=== PATIENT | male | born 1975 | race Caucasian/White ===

== ENCOUNTER 2017-07-26 22:29 | Emergency (ER) | payer MEDICAID, SELFPAY ==
[2017-07-26 22:30] VITALS: BP 177/113; PULSE 87; RESP 18; TEMP 36.7; O2SAT 96; BMI 29.0
--- NOTE | 2017-07-26 23:01 | ED.VISSUMM ---
- ER Visit Summary Date of Service: 07/26/17 Chief Complaint: [] Left-sided jaw pain History of Present Illness: The patient is a 42 M [] patient that he had allergic reaction to eating strawberry shortcake. He developed some left lower jaw pain and thought it was swollen just an hour ago. He has an aching sensation in his left lower jaw. No dental pain. He iced and use ibuprofen. Very small to moderate Physical Examination: [] Vital signs reviewed General: Well-nourished well-developed Head: Normocephalic atraumatic Eyes: Pupils equal round and reactive to light extraocular movements intact ENT: TMs clear no hemotympanum no trauma. Oral exam normal. Dental exam normal. Cheek exam normal. Neck: Nontender full range of motion. Patient has a swollen tender left submandibular lymph node. TMJs normal. Parotid is normal. Cardiovascular: Regular rate rhythm no murmurs normal S1-S2 Respiratory: No distress clear to auscultation bilaterally chest nontender Abdomen: Soft nontender nondistended normal bowel sounds no masses Back: Nontender no CVA tenderness Extremities: Nontender active range of motion ?4 extremities no trauma Skin: Normal color no trauma Neuro alert oriented cranial nerves II through XII intact normal strength sensation reflexes Test Results: [] Emergency Department Course and Treatment: [] At this time the patient is has a swollen tender lymph node. There is no tonsillitis. There is no allergic reaction. There is no significant swelling anywhere else. Patient will be given amoxicillin for lymphadenitis. Will continue ibuprofen and ice. Will follow up. Treatment Plan: [] Disposition: [] Impression: [] Left cervical lymphadenitis This note was generated with [employer] dictation software. It may contain incorrect words, spelling, and punctuation that were not noted in review of the chart prior to signing ED Disposition - Plan for ED Patient: Chief Complaint: Allergic Reaction Referrals: Chaim Jones MD [Primary Care Provider] -
--- NOTE | 2017-07-26 23:03 | ED.DEP ---
ED Disposition - Plan for ED Patient: Disposition: Home or Assisted Living Chief Complaint: Allergic Reaction Instructions: ED Cervical Adenitis Abx Tx Prescriptions: Amoxicillin 500 mg PO TID #30 tab Referrals: Chaim Jones MD [Primary Care Provider] -
[2017-07-26] MEDS: AMOXICILLIN 500 MG CAPSULE PO (23:14)
[2017-07-26 23:19] VITALS: RESP 16
== END 2017-07-26 23:20 | disposition home or self-care (01) ==
LOC: ED 23:07
PROVIDERS: Emergency Provider Emergency Medicine; Family Provider Family Medicine; PCP Family Medicine
DX: I88.9 Nonspecific lymphadenitis, unspecified (principal); M79.7 Fibromyalgia; Z72.0 Tobacco use
CPT/HCPCS: 99283

== ENCOUNTER 2017-07-31 09:55 | Emergency (ER) | payer MEDICAID, SELFPAY ==
[2017-07-31 09:56] VITALS: BP 164/103; PULSE 130; RESP 18; TEMP 36.7; O2SAT 97; BMI 28.1
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
--- NOTE | 2017-07-31 10:30 | ED.DEP ---
ED Disposition - Plan for ED Patient: Chief Complaint: Shortness of Breath Instructions: ED Inhalation Chemical Referrals: Chaim Jones MD [Primary Care Provider] - As Needed
[2017-07-31 10:42] VITALS: BP 166/111; PULSE 115; RESP 24; O2SAT 95
== END 2017-07-31 10:42 | disposition home or self-care (01) ==
LOC: ED 10:30
PROVIDERS: Emergency Provider Emergency Medicine; Family Provider Family Medicine; PCP Family Medicine
DX: T59.811A Toxic effect of smoke, accidental (unintentional), initial encounter (principal); Y92.9 Unspecified place or not applicable; M79.7 Fibromyalgia; J45.909 Unspecified asthma, uncomplicated; R05 Cough
CPT/HCPCS: 99284

== ENCOUNTER 2018-03-28 15:22 | Emergency (ER) | payer MEDICAID, SELFPAY ==
[2018-03-28 15:22] VITALS: BP 170/106; PULSE 107; RESP 16; TEMP 36.9; O2SAT 99; BMI 28.1
--- NOTE | 2018-03-28 16:11 | EKG12_ITS ---
Test Reason : DIZZY Blood Pressure : / mmHG Vent. Rate : 087 BPM Atrial Rate : 087 BPM P-R Int : 172 ms QRS Dur : 092 ms QT Int : 350 ms P-R-T Axes : 043 002 020 degrees QTc Int : 421 ms Normal sinus rhythm Normal ECG Confirmed by NITIN CAMPOVERDE, TONY ([id number]), publication editor KARLY BAR ([id number]) on 04/02/2018 10:56:18 AM Referred By: MAYI Confirmed By:TONY TAVERAS MD
--- NOTE | 2018-03-28 16:19 | CT_ITS ---
STUDY: CTA OF THE BRAIN REASON FOR EXAM: Male, 43 years old. Headache, blurred vision. RADIATION DOSAGE (If Supplied By Facility): CTDIvol = ( 24.73 ) mGy, DLP = ( 1189.67 ) mGycm TECHNIQUE: CT angiography was performed with a multi-detector CT scanner. Data acquisition was obtained from the skull base through the vertex following intravenous administration of Isovue 370 100 IV. MIP images were reconstructed from the axial data set. Post-processing of the angiographic images was performed, with multiplanar reformation and 3D reconstruction. Individualized dose optimization techniques were used for this CT. COMPARISON: CT brain 09/03/2016. 01/19/2014. FINDINGS: CT brain: There is no intracranial hemorrhage, hydrocephalus, or acute territorial infarct. There is a 3.8 x 2.1 cm hypodensity in the left anterior middle cranial fossa consistent with arachnoid cyst. There is no significant change compared to 2013. CTA brain: Normal bilateral petrous carotid arteries. Normal right cavernous carotid artery with a normal supraclinoid bifurcation. Normal left cavernous carotid artery with a normal supraclinoid bifurcation. Normal right A1 segments of the anterior cerebral artery. Normal left A1 segments of the anterior cerebral artery. Normal intact anterior communicating artery (ACOM). Normal bilateral A2 segments of the anterior cerebral arteries. Normal right M1 and M2 segments of the middle cerebral arteries, with a normal M1 bifurcation. Normal left M1 and M2 segments of the middle cerebral arteries, with a normal M1 bifurcation. Normal right posterior communicating artery (PCOM). Normal left posterior communicating artery (PCOM). There is a left dominant vertebral artery. The right vertebral artery terminates as the posterior inferior cerebellar artery. Normal basilar artery with a normal basilar bifurcation. The visualized bilateral superior cerebellar (SCA) arteries are normal. Normal bilateral P1, P2 and visualized P3 segments of the posterior cerebral arteries. There is no demonstrated aneurysm of the tangirnaq of [place]. CT/CTA Head W/WO Contrast IMPRESSION: Normal tangirnaq of Hall without a demonstrated aneurysm or significant stenosis. Stable left middle cranial fossa arachnoid cyst. Electronically Signed: Nicole Burnette MD at 18:18 EST Tel , Service support ,
[2018-03-28 16:44] VITALS: BP 161/111; PULSE 97; RESP 22; O2SAT 96
--- NOTE | 2018-03-28 16:48 | ED.DCSUM_ITS ---
- ER Visit Summary Date of Service: 03/28/18 Chief Complaint: [] Headache history of headaches and fibromyalgia History of Present Illness: The patient is a 43 M [] reports from 2:00 began to experience a dull diffuse headache, it is not the worst headache of his life, he indicates headache persisted pounding throbbing he had no other complaints, no change in vision speech no paresthesia his symptoms did not improve at home and he came in for evaluation he indicates he has a prior history for headaches and other neurologic conditions he is been seen in the past by neurology had brain scans he has never been told he has brain aneurysm brain tumor at one point time it was concerned he may have MS because he had other musculoskeletal skeletal symptoms of fatigue but was later determined he did not have MS and more likely fibromyalgia,, his review of systems are negative for fever cough runny nose n yun stiffness photophobia numbness weakness or paresthesia he has no other past history other than fibromyalgia is noted his blood pressure is 175/110 he is not known to have hypertension and nothing today made him ill Physical Examination: [] Afebrile blood pressure as above General, no distress resting comfortably HEENT is generally unremarkable The neck is supple no adenopathy Cardiovascular, regular rate and rhythm Lungs, clear bilateral Abdomen, soft nontender Extremities, no clubbing cyanosis or edema Neurologic, awake alert answering questions appropriately moving all 4 extremities, no neurologic findings NIH 0 Test Results: [] Emergency Department Course and Treatment: [] Given all the above screening labs CTA medications The patient's labs are all unremarkable CT of the head shows nothing acute see that report on reevaluation his blood pressures improved to 130/92 is feeling much better I discussed all of the above with the patient and he wants to go home and wants no further imaging or studies or procedures to the emergency department I have explained to him that the exact etiology of the headache are unclear he has had them before he is referred to his outpatient providers and also given referral to Dr. Eckert of neurology and will return for change in symptoms, further given that he has no history of hypertension I explained to him that one visit to the ED does not establish that diagnosis and he will have that checked with his outpatient providers Treatment Plan: [] Disposition: [] Home stable Impression: [] Headache and hypertension resolved This note was generated with [employer] software. It may contain incorrect words, spelling, and punctuation that were not noted in review of the chart prior to signing ED Disposition - Plan for ED Patient: Referrals: Chaim Jones MD [Primary Care Provider] -
[2018-03-28] MEDS: Clonidine HCl 0.1 MG, Clonidine HCl 0.2 MG 0.3 MG PO (16:49)
[2018-03-28] MEDS: proCHLORPERazine 10 MG/2 ML Vial IV (16:50)
[2018-03-28] MEDS: DiphenhydrAMINE 50 MG/ML Syringe 25 MG IV (16:50)
[2018-03-28 16:57] LABS: Absolute Lymphocyte Count 1.74 X10^3/ul (0.83-4.51); Absolute Neutrophil Count 4.9 X10^3/uL (2.0-7.7); Basophil# 0.01 X10^3/uL; Basophil% 0.1 % (0-1); Eosinophil# 0.08 X10^3/uL; Eosinophils% 1.1 % (0-5); Hematocrit 43.9 % (40-54); Hemoglobin 14.3 g/dl (13.0-16.5); Lymphocyte # 1.74 X10^3/ul (4.0); Lymphocyte % 24.6 % (19-41); Mean Corp Hgb Conc 32.6 g/gl (32-36); Mean Corpuscular Hgb 29.9 pg (27.0-32.0); Mean Corpuscular Volume 91.8 fL (80-94); Mean Platelet Vol. 9.1 fl (6.2-12.0); Monocyte# 0.38 X10^3/uL; Monocyte% 5.4 % (0-10); Neutrophil # 4.85 X10^3/uL (2.7-7.7); Neutrophil % 68.7 % (47-70); Platelet Count 261 K/mm3 (150-450); RBC Distribution Width CV 13.3 % (11.6-14.6); RBC Distribution Width SD 44.4 fl (35.1-43.9); Red Blood Count 4.78 M/mm3 (4.6-6.2); White Blood Count 7.1 K/mm3 (4.4-11.0)
[2018-03-28 16:58] LABS: POSITIVE COUNT NO; POSITIVE DIFFERENTIAL NO; POSITIVE MORPHOLOGY NO
[2018-03-28 17:11] LABS: Anion Gap 9 (5-15); BUN 19 mg/dL (7-18); BUN/Creat Ratio 19.1 RATIO (10-20); Calcium,Total 9.2 mg/dL (8.5-10.1); Chloride 107 mmol/L (98-107); EST Glomerular Filtration Rate 87 mL/min (>60); Est Glom Filt Rate - Afr Amer 105 mL/min (>60); Estimated Creatinine Clearance 89.05 ml/min; Glucose 115 mg/dL (74-106); Sodium Level 142 mmol/L (136-145)
[2018-03-28 18:07] VITALS: BP 132/92; PULSE 84; RESP 19; O2SAT 95
--- NOTE | 2018-03-28 19:05 | ED.DEP ---
ED Disposition - Plan for ED Patient: Referrals: Chaim Jones MD [Primary Care Provider] - Anthony Eckert MD [STAFF PHYSICIAN] -
--- NOTE | 2018-03-28 19:06 | ED.DEP ---
ED Disposition - Plan for ED Patient: Instructions: ED Cephalgia Unspecified Referrals: Chaim Jones MD [Primary Care Provider] - Anthony Eckert MD [STAFF PHYSICIAN] -
[2018-03-28 19:34] VITALS: BP 115/79; PULSE 75; RESP 18; O2SAT 95
== END 2018-03-28 19:36 | disposition home or self-care (01) ==
PROVIDERS: Emergency Provider Emergency Medicine; Family Provider Family Medicine; PCP Family Medicine
DX: R51 Headache (principal); I10 Essential (primary) hypertension; M79.7 Fibromyalgia
CPT/HCPCS: 70496; 80048; 84484; 85025; 93005; 96361; 96374; 96375; 99284; J7040; Q9967

== ENCOUNTER 2023-05-08 10:30 | Outpatient (RCR) | payer MEDICAID, SELFPAY ==
--- NOTE | 2023-04-05 06:58 | HP.OTEVAL ---
Patient's Visit Information Visit Information Visit Information: PHILLY SHIELDS is a 48 year old M, referred to Occupational Therapy by LORRI Snyder, with a diagnosis of right elbow pain. Date of Evaluation: 04/04/23 Occupational Therapist: URBAN Sawant/Smita, CHT Subjective Subjective: This 48 year old male was seen for OT eval with dx of right elbow pain- pt states in Fall of 2022 he noticed discomfort and in 2023 he noticed a big change with pain to where it was radiating down his arm into the wrist. pt arrives with counterforce ( lateral epicondylitis brace) pt states this limits him sleeping throughout the night. pt states he works for [employer]- pt states he has been employed since 2016. 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 pt is right handed pt states he did have right elbow sx in 2008 but does not know what was repaired. pt states he has had a elbow brace and started wearing it a few weeks ago. pt states he can not due ice due to a dx of Fibro pt states he does use heat. 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 pt will demo a increase in right forearm sup/pron by 15* with no reported end range pain by d.c to return pt to his PLOF. Goal:: pt will report pain no greater than 2/10 with use of right UE with ADLs by d/c Goal:: Pt will demo understanding of work/lifting and carry ergonomics to decrease stress on tendons to increase pts independent with ADLs, IADLS and work tasks by d/c. Goal:: Pt will demo understanding of using supportive bracing 80% of workday/ADLS to decrease stress on tendon origin to allow healing and decrease pain by end of 2nd session. Rehabilitation General Assessment: pt demo with right elbow pain that limits him from performing his ADLs and work tasks at IND. level. Pt demo need for skilled OT services 2-3x week to decrease pts pain and ed. pt on protective mary. to avoid strain on tendons with daily and work tasks to return pt to a IND. level. Today therapist ed. pt on protective mary. for right elbow pain- use of counter force brace with wrist brace. Pt demo understanding and agrees to POC. Rehabilitation Potential: Good Anticipated Interventions Anticipated Interventions: A/AAROM/PROM, Strengthening, Triggerpoint Release, Modalities, Orthoses, Joint Protection/Energy Conservation, Ergonomic Education, Education re Diagnosis and Home Program Visit Plan Frequency: 2-3x /Week Duration: 2 Months TEXT: Thank you for the opportunity to evaluate your patient. For Medicare and Medicare HMO plans, please review the plan of care and approve it. It will need to be FAXED BACK to us at [phone] for Medicare purposes. Please let me know if there are questions or concerns regarding this plan of care. Physician Signature: Date:
--- NOTE | 2023-05-08 11:20 | HP.OTDCSUM ---
Discharge Summary D/C Summary: It has been my pleasure to treat PHILLY SHIELDS under orders from LORRI Snyder, for the diagnosis of right elbow pain for a total of 10 visit(s). Please see the following information for a summary of their discharge status. Overall Improvement % Improvement: 50 Objective Objective/Function: oil treater strength R elbow at 90 35 pounds oil treater strength L elbow at 90 90 pounds oil treater strength elbow extended R 15 oil treater strength elbow extended L 75 R wrist 65/92 R supination 65 pronation 55 Goals Patient Goals: Regain Strength, Decrease Pain and Use Hand/Wrist/Arm Normally Again Goal:: pt will demo a increase in right oil treater strength by 40# or greater to return to his PLOF with ADLs and IADLs by d.c goal not met oil treater strength remained the same Goal:: pt will demo a increase in right elbow ROM by 5* with no reported end range pain by d.c to return pt to his PLOF. goal met pt will demo a increase in right forearm sup/pron by 15* with no reported end range pain by d.c to return pt to his PLOF. improvement in supination however not pronation Goal:: pt will report pain no greater than 2/10 with use of right UE with ADLs by d/c goal met 0/10 Goal:: Pt will demo understanding of work/lifting and carry ergonomics to decrease stress on tendons to increase pts independent with ADLs, IADLS and work tasks by d/c. goal met Goal:: Pt will demo understanding of using supportive bracing 80% of workday/ADLS to decrease stress on tendon origin to allow healing and decrease pain by end of 2nd session. goal met Plan Plan: discharge this date D/C Information Discharge Comments: 10th visit discharge from OT pt with decreased pain now at a 0/10. pt with increased ROM at elbow and wrist. fluctuating oil treater strength however isometric exercises provided as well as phase 3 and 4 of HEP to address strengthening as pain allows. pt quick dash score improved by 19 points. d/c sentence: If there are questions or concerns regarding this patient's occupational therapy, please fell free to call me at [phone]. Thank you for the referral of this patient. Sincerely, Esther Low
== END 2023-05-08 19:00 | disposition home or self-care (01) ==
LOC: OT 10:30
PROVIDERS: PCP Family Medicine; Referring Provider Physician Assistant; Visit Provider Physician Assistant
DX: M77.11 Lateral epicondylitis, right elbow (principal); M25.521 Pain in right elbow
CPT/HCPCS: 97035; 97140; 97166; 97530

== ENCOUNTER 2024-03-18 18:47 | Emergency (ER) | payer MEDICAID, SELFPAY ==
[2024-03-18] VITALS (10 sets, daily range): BP systolic 134–163; BP diastolic 88–102; PULSE 96–135; RESP 16–30; TEMP 36.9–37.7; O2SAT 95–100; BMI 29.1
--- NOTE | 2024-03-18 18:53 | CT_ITS ---
PROCEDURE: CT BRAIN WITHOUT CONTRAST REASON FOR EXAM: UNRESPONSIVE TO VOICE. OPEN EYES TO PAINFUL STIMULI. TECHNIQUE: Contiguous axial scans of 3.75 mm slice thicknesses with sagittal and coronal reconstruction images. One or more dose reduction techniques were utilized (e.g., automated exposure control, adjustment of mA and/or kv according to patient size, use of iterative reconstruction technique). COMPARISON: No acute intracranial abnormalities are demonstrated. No relevant prior. FINDINGS: No intraparenchymal hemorrhage. Encephalomalacia at the anterior aspect of the temporal lobe. No mass effect or midline shift. Germain-white matter differentiation is normal. Ventricles and cisterns are appropriate size for patient's age. No extra-axial fluid collections. Dense calcification of the anterior falx cerebri. Cerebellum and posterior fossa unremarkable. A mucoperiosteal retention cyst in the left maxillary sinus measuring 2.5 x 1.7 cm. Mastoid air cells are normal. Calvarium unremarkable. Soft tissues unremarkable. CT/Brain/Head without Contrast IMPRESSION: 1. No acute intracranial abnormalities are demonstrated. 2. Encephalomalacia at the anterior aspect of the left temporal lobe may be re lated to atrophy 3. Mucoperiosteal retention cyst, left maxillary sinus. Reading Location: [facility]
--- NOTE | 2024-03-18 18:53 | EKG12_ITS ---
Test Reason : DYSRHYTHMIA Blood Pressure : */* mmHG Vent. Rate : 113 BPM Atrial Rate : 113 BPM P-R Int : 166 ms QRS Dur : 86 ms QT Int : 316 ms P-R-T Axes : 39 -5 21 degrees QTcB Int : 433 ms Sinus tachycardia Minimal voltage criteria for LVH, may be normal variant ( R in aVL ) Borderline ECG Confirmed by NITIN CAMPOVERDE, TONY ([id number]), sports editor [employer]Р [employer]END[employer] ([id number]) on 03/20/2024 7:09:46 AM Referred By: Confirmed By: TONY TAVERAS MD
[2024-03-18 19:09] LABS: Allen Test Positive; Base Excess 3 mmol/L (-2 to +2); Bicarbonate 26.8 mmol/L (22-26); Blood Gas Specimen Type ART; Mode Not entered; O2 Delivery Device Room Air; PO2 60 mmHG (75-100); SITE L Radial; SO2 92 % (95-99); Total Carbon Dioxide 28 mmol/L; pCO2 37.9 mmHg (35-45); pH 7.46 (7.35-7.45)
[2024-03-18 19:13] LABS: Absolute Lymphocyte Count 2.21 X10^3/uL (0.83-4.51); Absolute Neutrophil Count 5.6 X10^3/uL (2.0-7.7); Basophil# 0.02 X10^3/uL; Basophil% 0.2 % (0-1); Eosinophil# 0.24 X10^3/uL; Eosinophils% 2.6 % (0-5); Hematocrit 39.7 % (40-54); Hemoglobin 13.7 g/dL (13.0-16.5); Lymphocyte # 2.21 X10^3/ul (0.83-4.51); Lymphocyte % 24.1 % (19-41); Mean Corp Hgb Conc 34.5 g/dL (32-36); Mean Corpuscular Hgb 30.6 pg (27.0-32.0); Mean Corpuscular Volume 88.8 fL (80-94); Mean Platelet Vol. 8.8 fl (6.2-12.0); Monocyte# 1.05 X10^3/uL; Monocyte% 11.5 % (0-10); NRBC Flagged by Analyzer 0 % (0-5); Neutrophil # 5.61 X10^3/uL (2.7-7.7); Neutrophil % 61.3 % (47-70); Platelet Count 247 K/mm3 (150-450); RBC Distribution Width SD 42.2 fl (35.1-43.9); Red Blood Count 4.47 M/mm3 (4.6-6.2); White Blood Count 9.2 K/mm3 (4.4-11.0)
[2024-03-18 19:13] LABS: Bacteria 0 SEEN /hpf (None Seen); Mucous, Urine 0 SEEN /hpf (<or=2+); Red Blood Cells-Urine 0 SEEN /hpf (0-5); Squamous Epithelial Cells - UA 0 SEEN /hpf (0-5); White Blood Cells 0 SEEN /hpf (0-5)
--- NOTE | 2024-03-18 19:15 | RAD_ITS ---
PROCEDURE: CHEST 1 VIEW (PORTABLE) REASON FOR EXAM: Tachypnea. Fever TECHNIQUE: AP upright portable chest. COMPARISON: No relevant prior FINDINGS: Lungs are clear of pneumonia and congestion. No pleural effusions, thickening, or pneumothorax. Heart and mediastinum are normal. Great vessels unremarkable. No hilar masses. Bones and soft tissues are unremarkable. Cardiac monitoring leads overlie the chest wall. RAD/Chest 1 View (Portable) IMPRESSION: No active cardiopulmonary disease. Reading Location: [facility]
[2024-03-18 19:18] LABS: Color, Urine Yellow (Yellow); Glucose, Dipstick Normal (Normal); Ketone-Dipstick Negative (Negative); Leukocyte Esterase-Dipstick Negative /ul (Negative); Nitrite-Dipstick Negative (Negative); Occult Blood-Urine 10 /ul (Negative); Protein-Dipstick 15 mg/dl (Negative); Urine Bilirubin Dipstick Negative (Negative); Urine Clarity Clear (Clear); Urine Urobilinogen Normal (Normal)
[2024-03-18 19:32] LABS: ALB/GLOB Ratio 1.1 RATIO (0.9-2.4); AST(SGOT) 18 U/L (15-37); Alanine Aminotransfer ALT/SGPT 33 U/L (16-61); Albumin, Serum 4.1 g/dL (3.2-5.0); Alkaline Phosphatase 59 U/L (45-117); Anion Gap 9 (5-15); BUN 18 mg/dL (7-18); CPK Total, Creatine Kinase 174 U/L (39-308); Calcium,Total 9.4 mg/dL (8.5-10.1); Chloride 103 mmol/L (98-107); EST Glomerular Filtration Rate 84 mL/min (>60); Est Glom Filt Rate - Afr Amer 102 mL/min (>60); Estimated Creatinine Clearance 95.85 ml/min; Globulin 3.6 g/dL (2.2-4.2); Glucose 147 mg/dL (74-106); Potassium 3.5 mmol/L (3.5-5.1); Protein, Total 7.7 g/dL (6.4-8.2); Sodium Level 137 mmol/L (136-145)
[2024-03-18 19:33] LABS: Partial Thromboplast Time 25.9 Seconds (24.1-36.2); Prothrombin Time (Protime)PT. 12.9 SECONDS (11.7-14.9)
[2024-03-18 19:41] LABS: Lactic Acid 1.6 mmol/L (0.4-1.9)
[2024-03-18] MEDS: Acetaminophen 325 MG Tablet 650 MG PO (20:51)
--- NOTE | 2024-03-18 22:58 | EDS_ITS ---
HPI History of Present Illness Chief Complaint: Unresponsive Detail of Chief Complaint: Patient arrived unresponsive with GCS of 10 Informant: EMS Onset/Context/Timing Onset: Today Context: Sudden Onset Timing: Continuous Quality: Taking [id number] flu cold medication and Mucinex Location: Presents from home apparently Current Severity: Moderate Maximum Severity: Moderate Worsened by: Medication patient took contains Benadryl. Relieved by: Nothing Associated Symptoms Associated Symptoms: Unable to determine Narrative Narrative: Patient is a 49-year-old male he has history of being overweight, fibromyalgia and chronic fatigue. He arrived by EMS because of altered mental status. Unable to obtain any history. Review of prior records indicates patient was seen April 03 for elbow pain at the orthopedic office by Esperanza BLACKMON. July 2018 seen for acute sinusitis at urgent care by Peter Valderrama. He was seen again at urgent care for sinusitis May 2018. He was seen March 2018 for headache in the ER. Prior similar symptoms: No PFSH PFSH Medical History (Updated 03/18/24 @ 23:[address] Nathen Villa MD) Hay fever Back pain Chest pain Headache Fever Arthritis Home Medications ?Medication ?Instructions ?Recorded ?Last Taken ?Type NK 03/18/24 Unknown History Allergy/AdvReac Type Severity Reaction Status Date / Time No Known Allergies Allergy Verified 03/18/24 18:50 Family History Other CVA (cerebral vascular accident) Diabetes Hypertension Thyroid disorder Social History Smoking Status: Never smoker alcohol intake: never ROS ROS ED Review of Systems ROS Unobtainable: due to mental status EXAM Physical Exam Const Vital Signs: 03/18/24 18:50 03/18/24 18:53 03/18/24 18:55 Temperature 99.8 F H 99.8 F H Temperature Source Temporal Temporal Pulse Rate 135 H 129 H Respiratory Rate 30 H 23 H Respiratory Effort Normal Respiratory Pattern Tachypnea Blood Pressure 163/100 H 163/100 H Blood Pressure Mean 121 121 Pulse Ox 95 95 Oxygen Delivery Method Nasal Cannula Room Air 03/18/24 19:00 03/18/24 19:24 03/18/24 19:53 Temperature 99.9 F H Temperature Source Core Pulse Rate 114 H 109 H Respiratory Rate 28 H 20 H Respiratory Effort Respiratory Pattern Blood Pressure 155/102 H 144/98 H Blood Pressure Mean 119 113 Pulse Ox 95 97 99 Oxygen Delivery Method Room Air Room Air Room Air 03/18/24 20:00 03/18/24 21:00 03/18/24 22:00 Temperature 99.9 F H 99.9 F H 98.4 F Temperature Source Core Core Oral Pulse Rate 109 H 96 108 H Respiratory Rate 20 H 20 H 19 H Respiratory Effort Respiratory Pattern Blood Pressure 144/98 H 142/88 H 136/95 H Blood Pressure Mean 113 106 108 Pulse Ox 99 100 95 Oxygen Delivery Method Room Air Room Air Room Air Vital signs noted. He is hypertensive and tachycardic as well as tachypneic. He is not hypoxic. Positive well developed Constitutional Narrative: Patient is flushed. His mental status is altered with a GCS of 10. His eyes are open, no verbal and localizes the pain General Appearance ED: well developed and NAD; Negative for cyanotic or diaphoretic HEENT Reports dry mucous membranes HEENT Narrative: Head is atraumatic, cephalic. Face is flushed. Ears normal. Nares patent. Posterior pharynx is normal. Mouth ED: Yes dry mucous membranes Mouth: dry mucous membranes Eyes PERRL and EOMs intact bilaterally Eyes Narrative: There is no nystagmus. There is no subconjunctival hemorrhage. General Eye ED: Negative for scleral icterus Neck no lymphadenopathy, supple and no JVD Chest Wall inspection of chest normal and palpation of chest normal Resp normal respiratory effort and clear to auscultation bilaterally Cardio regular rhythm, S1 normal heart sound, S2 normal heart sound and no murmurs Rate: tachycardic GI normal to inspection, nondistended, normoactive bowel sounds, non-tender, non- distended and no masses; Negative for hepatosplenomegaly Extremity Extremity Narrative: Inspection of the back is normal. Surgical scars noted forearm. No acute injuries or abnormality noted. Neuro No oriented x3 Neuro Narrative: There is no clonus Babinski sign noted. Patella, ankle, bicep and brachialis deep tendon reflexes 1+ and symmetric. Psych Psych Narrative: Unable to assess.. Skin Skin Narrative: Patient is flushed. MDM MDM MDM Narrative Medical decision making narrative: Based on history of taking [id number] medication with Benadryl and the fact that he is tachycardic with altered mental status flushed and appears dry this may represent a anticholinergic toxidrome. Need to evaluate for intracranial process and reason for CT of the head. Blood work is obtained to assess for metabolic or infectious cause of his abnormal etiology. He felt warm to touch and temperature was noted to be 99.8 [place]. Lab Data Attestation: I reviewed the patient's lab results. Lab results narrative: CBC is unremarkable. Comprehensive metabolic panel is remarked for glucose of 147 with normal CO2 anion gap. UA is negative. Labs: Laboratory Results - last 24 hr 03/18/24 03/18/24 19:00 19:03 WBC 9.2 RBC 4.47 L Hgb 13.7 Hct 39.7 L MCV 88.8 MCH 30.6 MCHC 34.5 RDW Std Deviation 42.2 RDW Coeff of Chyna 13.0 Plt Count 247 MPV 8.8 Immature Gran % (Auto) 0.300 Neut % (Auto) 61.3 Lymph % (Auto) 24.1 [place] % (Auto) 11.5 H Eos % (Auto) 2.6 Baso % (Auto) 0.2 Absolute Neuts (auto) 5.6 Absolute Lymphs (auto) 2.21 Nucleated RBC % 0 PT 12.9 INR 1.0 APTT 25.9 Sodium 137 Potassium 3.5 Chloride 103 Carbon Dioxide 25.0 Anion Gap 9 BUN 18 Creatinine 1.00 Estim Creat Clear Calc 95.85 Est GFR (MDRD) Af Amer 102 Est GFR (MDRD) Non-Af 84 BUN/Creatinine Ratio 18.0 Glucose 147 H Lactic Acid 1.6 Calcium 9.4 Total Bilirubin 0.40 AST 18 ALT 33 Alkaline Phosphatase 59 Total Creatine Kinase 174 Total Protein 7.7 Albumin 4.1 Globulin 3.6 Albumin/Globulin Ratio 1.1 Urine Color Yellow Urine Clarity Clear Urine pH 7.0 Ur Specific [place] 1.010 Urine Protein 15 H Urine Glucose (UA) Normal Urine Ketones Negative Urine Occult Blood 10 H Urine Nitrite Negative Urine Bilirubin Negative Urine Urobilinogen Normal Ur Leukocyte Esterase Negative Urine RBC 0 SEEN Urine WBC 0 SEEN Ur Squamous Epith Cells 0 SEEN Urine Bacteria 0 SEEN Urine Mucus 0 SEEN ABG Data ABG results: ABG 03/18/24 19:06 Specimen Type ART Sample Site L Radial pH 7.46 H Bicarbonate Actual 26.8 H Total CO2 28 Base Excess 3 H O2 Saturation 92 L ABG pCO2 37.9 ABG pO2 60 L Willie Test Positive O2 Delivery Device Room Air Vent Mode Not entered Radiography Chest X-Ray - ED: 1 View, Read by ED Physician, Normal, Heart, Lungs, Mediastinum, Bony Structures and No Acute Disease Diagnostic Testing: Clinical Impression(s) from Imaging Studies Brain CT 03/18/24 18:53 IMPRESSION: 1. No acute intracranial abnormalities are demonstrated. 2. Encephalomalacia at the anterior aspect of the left temporal lobe may be related to atrophy 3. Mucoperiosteal retention cyst, left maxillary sinus. Reading Location: [facility] Chest X-Ray 03/18/24 19:15 IMPRESSION: No active cardiopulmonary disease. Reading Location: [facility] EKG Initial EKG: Attestation: I personally reviewed and interpreted this EKG as follows: Interpretation: Sinus Tachycardia (Rate is 113. Question of LVH by volt age criteria. [place] interval 206 ms. QS duration 86 ms. QT duration 316 ms. [place] is normal.) Treatment and Re-Evaluation :: Patient and family were made aware of results. Since patient is alert oriented no longer tachycardic and pressure is improved and able to give me history. He has been ill with viral-like symptoms that started March 14. He only took medicine that did have Benadryl. He had a total of 3 pills. He took one 1 hour prior to his presentation. Suspect he had adverse reaction to the Benadryl with significant somnolence. Since workup is negative and now he is back to baseline and able to obtain satisfactory history will discharge to home. Discharge Plan Triage Chief Complaint: Unresponsive ED Provider: Nathen Villa Dx/Rx/DC Orders Clinical Impression: Systemic viral illness, Overweight (BMI 25.0-29.9), Adverse drug reaction, Elevated temperature due to infection, Sinus tachycardia seen on campus monitor, [place] coma scale eye opening score 4, opens eyes spontaneously, [place] coma scale motor function score 5, purposeful movement to painful stimulus, [place] coma scale verbal score 1, makes no sounds Instructions: ED Drug Reaction, Other, ED Viral Syndrome (Adult) Prescriptions: No Action NK Primary Care Provider: Chaim Jones Referrals: Chaim Jones MD [Primary Care Provider] - 1 Week if not improving Print Language: Luxembourger Disposition Disposition: Home, Self Care
== END 2024-03-18 23:36 | disposition home or self-care (01) ==
PROVIDERS: Emergency Provider Emergency Medicine; PCP Family Medicine; Visit Provider Emergency Medicine
DX: B34.9 Viral infection, unspecified (principal); E66.3 Overweight; R00.0 Tachycardia, unspecified; R40.4 Transient alteration of awareness; T45.0X5A Adverse effect of antiallergic and antiemetic drugs, initial encounter; Z68.29 Body mass index [BMI] 29.0-29.9, adult
CPT/HCPCS: 36600; 51702; 70450; 71045; 80053; 81001; 82550; 82803; 83605; 85025; 85610; 85730; 87040; 87086; 93005; 99285; A4216